=== PATIENT | male | born 1945 | race Caucasian/White ===

== ENCOUNTER 2017-11-10 07:43 | Day surgery (SDC) | payer MEDICARE, BC ==
[~2017-11-10 07:43] MED LIST: Midazolam 1 MG/ML 2 ML SDV ONE; Propofol 200 MG/20 ML SDV ONE; fentaNYL 100 MCG/2 ML SDV ONE
[2017-11-10] MEDS ORDERED: Dextrose 5%-Lactated Ringers 1,000 ML IV SCH (08:10)
[2017-11-10 10:25] VITALS: BP 154/81
--- NOTE | 2017-11-11 11:19 | OR ---
DATE OF PROCEDURE: 11/10/2017 PREOPERATIVE DIAGNOSIS: Indications for screening colonoscopy. POSTOPERATIVE DIAGNOSIS: Normal screening colonoscopy apart from limited uncomplicated left colonic diverticulosis. PROCEDURE PERFORMED: Flexible colonoscopy. ANESTHESIA: IV sedation. INDICATION FOR PROCEDURE: This is a 72-year-old referred for a screening colonoscopy. The potential risks of the procedure including bleeding and perforation were discussed, and the patient wishes to proceed. DESCRIPTION OF PROCEDURE: The patient was taken to the operating room and placed in a left lateral decubitus position. IV sedation was administered after which the digital rectal exam was performed and was unremarkable. Colonoscope was then passed into the rectum with retroflexion revealing uncomplicated hemorrhoidal columns. Scope was then passed eventually to the cecum. The prep was quite good with there only being a small amount of liquid stool present to the level of the only abnormality was some very limited left-sided diverticulosis which was otherwise uncomplicated. Apart from that, there were no areas of colitis and no polyps or other signs of neoplasia. The scope was then withdrawn, the above findings were reconfirmed, and the procedure then concluded. Recommendation would be to repeat colonoscopy in 10 years if at that point his health warrants the examination. Dexter Law MD /[id number]
== END 2017-11-10 10:40 | disposition home or self-care (01) ==
LOC: JP.SDS 07:43
PROVIDERS: ATTEND Surgery
DX: Z12.11 Encounter for screening for malignant neoplasm of colon (principal); K57.30 Diverticulosis of large intestine without perforation or abscess without bleeding; I12.9 Hypertensive chronic kidney disease with stage 1 through stage 4 chronic kidney disease, or unspecified chronic kidney disease; N18.9 Chronic kidney disease, unspecified; E11.22 Type 2 diabetes mellitus with diabetic chronic kidney disease; G47.33 Obstructive sleep apnea (adult) (pediatric)
CPT/HCPCS: G0121; J2250; J2704; J3010; J7042

== ENCOUNTER 2022-08-05 11:06 | Emergency (ER) | payer MEDICARE ==
[2022-08-05] MEDS ORDERED: methylPREDNISolone Sodium Succinate 125 MG/2 ML SDV IVPUSH ONE (11:29)
[2022-08-05] MEDS ORDERED: Famotidine 20 MG/2 ML SDV IVPUSH ONE (11:29)
[2022-08-05] MEDS ORDERED: diphenhydrAMINE 50 MG/ML SDV IVPUSH ONE (11:29)
[2022-08-05] MEDS ORDERED: Sodium Chloride 0.9% 500 ML IV ONE (11:29)
[2022-08-05] MEDS ORDERED: EPINEPHrine 1 MG/ML SDV IM ONE (11:41)
[2022-08-05 11:42] LABS: BASOPHILS ABSOLUTE AUTO 0.04 K/uL (0.00-0.10); BASOPHILS PERCENT AUTO 0.2 % (0.1-1.3); EOSINOPHILS PERCENT AUTO 0.1 % (0.0-5.4); HEMATOCRIT 52.8 % (38.4-49.7); HEMOGLOBIN 17.9 g/dL (12.9-16.9); IMMATURE GRAN ABSOLUTE AUTO 0.14 K/uL (0.00-0.23); IMMATURE GRAN PERCENT AUTO 0.7 % (0.0-0.7); LYMPHOCYTES ABSOLUTE AUTO 1.31 K/uL (0.8-3.3); LYMPHOCYTES PERCENT AUTO 6.3 % (11.4-47.7); MEAN CORPUSCULAR HEMOGLOBIN 31.7 pg (31.6-35.5); MEAN CORPUSCULAR HGB CONC 33.9 g/dL (31.6-35.5); MEAN CORPUSCULAR VOLUME 93.5 fL (81.4-99.0); MONOCYTES ABSOLUTE AUTO 1.08 K/uL (0.20-0.90); MONOCYTES PERCENT AUTO 5.2 % (3.3-12.6); NEUTROPHILS ABSOLUTE AUTO 18.05 K/uL (1.0-7.6); NEUTROPHILS PERCENT AUTO 87.5 % (40.0-78.1); PLATELET COUNT,PLT 169 K/uL (130-375); RED BLOOD CELL COUNT 5.65 M/uL (4.14-5.76); WHITE BLOOD CELL COUNT,WBC 20.6 K/uL (3.2-11.0)
[2022-08-05 11:52] LABS: EOSINOPHILS ABSOLUTE AUTO 0.02 K/uL (0.00-0.40)
[2022-08-05 11:58] LABS: ANION GAP 15.1 mmol/L (5.0-14.0); CALCIUM 8.4 mg/dL (8.5-10.1); CREATININE 1.8 mg/dL (0.8-1.3); EST CRCL DRUG DOSING (CG) 36.61 mL/min; MAGNESIUM 1.9 mg/dL (1.8-2.4); POTASSIUM,K 4.1 mmol/L (3.6-5.2)
[2022-08-05 14:14] VITALS: BP 123/73; PULSE 93
== END 2022-08-05 15:40 | disposition home or self-care (01) ==
LOC: JP.ED 11:06
DX: T63.481A Toxic effect of venom of other arthropod, accidental (unintentional), initial encounter (principal); E11.22 Type 2 diabetes mellitus with diabetic chronic kidney disease; N18.30 Chronic kidney disease, stage 3 unspecified; E66.9 Obesity, unspecified; Z79.4 Long term (current) use of insulin; Z91.030 Bee allergy status; Z79.01 Long term (current) use of anticoagulants; Z88.8 Allergy status to other drugs, medicaments and biological substances; Z79.82 Long term (current) use of aspirin; Z95.1 Presence of aortocoronary bypass graft
CPT/HCPCS: 36415; 80048; 83735; 85025; 93005; 96361; 96372; 96374; 96375; 99284; J0171; J1200; J2930; J3490; J7040